=== PATIENT | male | born 1940 | race Caucasian/White ===

== ENCOUNTER 2021-01-21 10:45 | Outpatient (CLI) | payer MEDICARE, SELFPAY | END 2021-01-21 10:46 | disposition home or self-care (01) | LOC: ANHAUDIO 10:46 | PROVIDERS: PCP Internal Medicine; Visit Provider Otolaryngology | DX: H91.90 Unspecified hearing loss, unspecified ear (principal) | CPT/HCPCS: 92557; 92567 ==

== ENCOUNTER 2023-08-13 13:31 | Emergency (ER) | payer MEDICARE, SELFPAY ==
[2023-08-13 13:50] VITALS: BP 154/86; PULSE 72; RESP 18; TEMP 36.6; O2SAT 100
--- NOTE | 2023-08-13 13:57 | ED_ITS ---
HPI - Male Genitourinary General Chief complaint: Urogenital-Male Stated complaint: problems with supra pubic catheter Time Seen by Provider: 08/13/23 13:46 History of Present Illness HPI Narrative: This is an 83-year-old male, with history of suprapubic catheter placement 16 days ago [facility], who presents to the emergency department with a leaking suprapubic catheter. The patient denies any pain or fevers or irritation at the catheter insertion site. The valve at the distal end of his catheter has has been repeatedly leaking. He has no other complaints at this time. Related Data Home Medications Medication Instructions Recorded Confirmed No Home Medications 01/05/21 01/05/21 Allergies Allergy/AdvReac Type Severity Reaction Status Date / Time No Known Allergies Allergy Mild Verified 01/05/21 10:38 Review of Systems Review of Systems: All systems reviewed & are unremarkable except as noted in HPI and below (HPI) PMFSH Past Medical History Medical History Urinary retention Surgical History Surgical History History of suprapubic catheter 07/28/2023 Social History Social History Smoking status: Never smoker Alcohol intake: current Substance use: never Exam Narrative: GENERAL: Well-developed, well-nourished, and in no acute distress. HEAD: Normocephalic, atraumatic. EYES: PERRLA and EOMI. CHEST: Clear to auscultation. No respiratory distress. No wheezes rales or rhonchi HEART: Regular rate and rhythm. No murmur heard. Normal peripheral pulses. ABDOMEN: A suprapubic catheter is noted in the suprapubic region. There is a small amount of surrounding erythema without leakage of urine, bleeding or purulent drainage. The distal end of the patient's suprapubic catheter appears to be leaking. Soft, nontender, nondistended, normal active bowel sounds. EXTREMITIES: Normal range of motion. No edema. SKIN: Warm, dry, no rash. NEURO: Alert and oriented x3. No focal deficit. Moving all 4 limbs spontaneously PSYCH: Normal mood and affect. Course Course Emergency Course: 14:13 - The patient's suprapubic catheter appears to be functionally normally, aside from an end cap that slides freely and causes leakage of urine on to the patient's clothes. The patient's catheter was fitted with a leg bag. Will discharge with recommendation for Urology follow-up as previously scheduled (08/18/2023). Discussed return and emergency precautions including signs/symptoms of acute abdomen and sepsis. The patient voiced understanding and agreement with the plan. All questions answered to his satisfaction. Vital Signs Vital signs: Vital Signs Temperature 97.9 F 08/13/23 13:50 Pulse Rate 72 08/13/23 13:50 Respiratory Rate 18 08/13/23 13:50 Blood Pressure 154/86 H 08/13/23 13:50 Pulse Oximetry 100 08/13/23 13:50 Temperature 97.9 F 08/13/23 13:50 Pulse Rate 72 08/13/23 13:50 Respiratory Rate 18 08/13/23 13:50 Blood Pressure 154/86 H 08/13/23 13:50 Pulse Oximetry 100 08/13/23 13:50 MDM - Male Genitourinary MDM Narrative Medical decision making narrative: Plan: Catheter valve replacement, reassess Differential Diagnosis Differential diagnosis: Likely other (Suprapubic catheter malfunction, other) Discharge Plan Discharge Clinical Impression: Malfunction of indwelling urinary catheter Qualifiers: Encounter type: initial encounter Qualified Code(s): T83.011A - Breakdown (mechanical) of indwelling urethral catheter, initial encounter Patient Disposition: Home, Self-Care Condition: Stable Instructions: Antibiotic Form, How to Care for Your Suprapubic Catheter (DC) Additional Instructions: You were seen in the emergency department. A valve of your suprapubic catheter was replaced in the emergency department. I recommend following up with your urologist as scheduled. If you develop severe abdominal pain, abdominal pain with fevers, persistent vomiting, or if you have other emergent concerns for life, limb, or eyesight, return to the emergency department. Patient Language: Mauritanian Prescriptions: No Action No Home Medications Follow-up/Referrals: Aurelia Rojas [Other] - 08/18/23 Bruce,Gideon Ruth MD [Primary Care Provider] - Time of Disposition: 14:12
== END 2023-08-13 15:01 | disposition home or self-care (01) ==
LOC: ANHED 14:40
PROVIDERS: Emergency Provider Preventive Medicine Aerospace Medicine; PCP Internal Medicine
DX: T83.030A Leakage of cystostomy catheter, initial encounter (principal); Y84.6 Urinary catheterization as the cause of abnormal reaction of the patient, or of later complication, without mention of misadventure at the time of the procedure
CPT/HCPCS: 99282

== ENCOUNTER 2024-04-05 17:27 | Emergency (ER) | payer MEDICARE, SELFPAY ==
[2024-04-05 17:39] VITALS: BP 146/70; PULSE 60; RESP 18; TEMP 36.4; O2SAT 100
--- NOTE | 2024-04-05 18:00 | ED.GENADULT ---
HPI - General Adult General Chief complaint: Urogenital-Male Stated complaint: possible UTI Time Seen by Provider: 04/05/24 18:00 Source: patient, RN notes reviewed and old records reviewed Mode of arrival: ambulatory Limitations: no limitations History of Present Illness HPI narrative: 83-year-old presents to the [facility] with his daughter. Patient currently lives in a memory care center for dementia. Has had a change in behavior. Care center wanted him to rule out a UTI. Denies any other symptoms Related Data Home Medications ?Medication ?Instructions ?Recorded ?Confirmed ?Last Taken ?Type citalopram 10 mg tablet mg 04/05/24 Unknown History clonidine HCl 0.1 mg tablet mg 04/05/24 Unknown History finasteride 5 mg tablet mg 04/05/24 Unknown History gabapentin 100 mg capsule mg 04/05/24 Unknown History quetiapine 50 mg tablet mg 04/05/24 Unknown History Allergies Allergy/AdvReac Type Severity Reaction Status Date / Time No Known Allergies Allergy Mild Verified 04/05/24 18:03 Review of Systems Review of Systems: All systems reviewed & are unremarkable except as noted in HPI and below Constitutional: Constitutional: Reports no additional constitutional complaints ENT: Reports system reviewed and no additional complaints, except as documented Cardiovascular: Cardiovascular: Reports no additional cardiovascular complaints, Denies chest pain and Denies dyspnea Respiratory: Respiratory: Reports no additional respiratory complaints, Denies chest congestion, Denies cough and Denies dyspnea Gastrointestinal: Gastrointestinal: Reports no additional gastrointestinal complaints, Denies abdominal pain, Denies nausea and Denies vomiting Musculoskeletal: Musculoskeletal: Reports no additional musculoskeletal complaints Integumentary/Breasts: Skin/Breast: Reports system reviewed and no additional complaints, except as docu Psychiatric: Psychiatric: Reports as per HPI [facility] Past Medical History Medical History Urinary retention Surgical History Surgical History History of suprapubic catheter 07/28/2023 Social History Social History Smoking status: Never smoker Alcohol intake: current Substance use: never Comments At the time of my signature, I reviewed and agree with the nursing past medical, surgical, social, and family history. There is no relevant family history pertinent to the patient complaint. Exam Const: General: cooperative, healthy appearing, comfortable, no acute distress, well developed, alert and well nourished Nutritional Appearance: well nourished Orientation/consciousness: oriented to person and oriented to place Limitations: no limitations HENMT: Head: normal to inspection Face/Nose/Sinus: normal facial exam and face symmetric Face and sinus: normal facial exam and face symmetric Eyes: General: appearance normal, both eyes and all related structures Neck: Neck: normal visual inspection, full ROM, no lymphadenopathy and no meningeal signs Chest: Chest palpation & inspection: normal inspection of the chest Resp: Effort & Inspection: normal respiratory effort and able to speak in complete sentences Cardio: Rate: regular rate Skin: General skin exam: normal color and no rashes or lesions noted Lesions: no lesions Rashes: no rashes Wounds: no wounds Neuro: General: patient oriented x3, gait normal, tone normal, moves all extremities and no meningeal signs Cognition (Neuro): normal cognition Speech: normal speech Gait exam (Neuro): Normal gait present Extrem: General: normal to inspection, full ROM, capillary refill normal and normal gait Psych: Appearance: grossly normal and well kempt Mental Status: mental status grossly normal Speech and movement: Normal speech and movement present and Clear speech present Affect: normal affect Attitude: cooperative Course Course Level of Care: Express Care Visit Vital Signs Vital signs: Vital Signs Temperature 97.6 F 04/05/24 17:39 Pulse Rate 60 04/05/24 17:39 Respiratory Rate 18 04/05/24 17:39 Blood Pressure 146/70 H 04/05/24 17:39 Pulse Oximetry 100 04/05/24 17:39 Oxygen Delivery Room Air 04/05/24 17:39 Temperature 97.6 F 04/05/24 17:39 Pulse Rate 60 04/05/24 17:39 Respiratory Rate 18 04/05/24 17:39 Blood Pressure 146/70 H 04/05/24 17:39 Pulse Oximetry 100 04/05/24 17:39 Oxygen Delivery Room Air 04/05/24 17:39 Reviewed Medical Decision Making MDM Narrative Medical decision making narrative: Patient sitting comfortably in exam room. Nontoxic, vitals stable. Patient in no acute distress Patient presents for for change of behavior at the memory care center. Patient's daughter reports that he is unaware of his diagnosis of dementia. Patient was very pleasant when talking to No signs of infection for his urine. Discussed this with daughter. Patient appropriate for outpatient treatment with strict signs and symptoms go the emergency room which daughter verbalized understanding Discharge instructions reviewed with patient, as well as provided in writing per nursing staff. The instructions also include specific and strict return/GO TO THE ER as well as f/u information. All questions have been answered, and the patient deny any further questions with discharge and discharge plan. Some parts of this dictation were generated by voice recognition software and may contain typographical and/or grammatical inaccuracies. Differential Diagnosis Differential Diagnosis: UTI, worsening dementia Medical Records Medical records reviewed: Yes I reviewed the external patient's medical records. Vital Signs Vital Signs: Vital Signs Temperature 97.6 F 04/05/24 17:39 Pulse Rate 60 04/05/24 17:39 Respiratory Rate 18 04/05/24 17:39 Blood Pressure 146/70 H 04/05/24 17:39 Pulse Oximetry 100 04/05/24 17:39 Oxygen Delivery Room Air 04/05/24 17:39 Temperature 97.6 F 04/05/24 17:39 Pulse Rate 60 04/05/24 17:39 Respiratory Rate 18 04/05/24 17:39 Blood Pressure 146/70 H 04/05/24 17:39 Pulse Oximetry 100 04/05/24 17:39 Oxygen Delivery Room Air 04/05/24 17:39 Reviewed Lab Data Lab results reviewed: Yes I reviewed the patient's lab results. Labs: Lab Results 04/05/24 Range/Units 18:08 POC Urine Color Yellow POC Urine Clarity Clear POC Urine pH 6.5 POC Ur Specif [place] 1.020 POC Urine Protein Negative (Negative) POC Ur Glucose (UA) Negative (Negative) POC Urine Ketones Negative (Negative) POC Urine Blood Negative (Negative) POC Urine Nitrite Negative (Negative) POC Urine Bilirubin Negative (Negative) POC Urine Urobilinogen 0.2 POC U Leukocyte Esteras Negative (Negative) Reviewed Critical Care Time Critical Care Time Critical Care Time: No Discharge Plan Discharge Clinical Impression: Adult wellness visit, History of dementia, Behavior concern in adult Patient Disposition: Home, Self-Care Condition: Stable Instructions: Dementia (ED) Additional Instructions: Urine urine dip did not show signs of a urinary tract infection Please follow-up with primary care provider as soon as possible For worsening symptoms please go directly to the nearest emergency room Patient Language: Yoruba Prescriptions: No Action clonidine HCl 0.1 mg tablet citalopram 10 mg tablet gabapentin 100 mg capsule finasteride 5 mg tablet quetiapine 50 mg tablet Follow-up/Referrals: PHYSICIAN,[employer] WORKER [Primary Care Provider] - Time of Disposition: 18:11
[2024-04-05 18:10] LABS: EDUAAPPEAR Clear; EDUABILI Negative (Negative); EDUABLOOD Negative (Negative); EDUACOLOR1 Yellow; EDUAGLUCOSE Negative (Negative); EDUAKETONE Negative (Negative); EDUALEUKO Negative (Negative); EDUANITRATE Negative (Negative); EDUAPH 6.5; EDUAPROTEIN Negative (Negative); EDUAUROBILI 0.2
== END 2024-04-05 18:14 | disposition home or self-care (01) ==
PROVIDERS: Emergency Provider Nurse Practitioner
DX: Z03.89 Encounter for observation for other suspected diseases and conditions ruled out (principal); F03.90 Unspecified dementia, unspecified severity, without behavioral disturbance, psychotic disturbance, mood disturbance, and anxiety; F91.9 Conduct disorder, unspecified
CPT/HCPCS: 81003; 99212; G0463

== ENCOUNTER 2024-09-09 01:13 | Emergency (ER) | payer MEDICARE, SELFPAY ==
--- NOTE | 2024-09-09 01:14 | ECG_ITS ---
Test Date: 2024-09-09 01:22:30 Measurements Intervals [place] Rate: 64 P: 53 MA: 209 QRS: -13 QRSD: 102 T: 36 QT: 418 QTc: 433 Interpretive Statements SINUS RHYTHM NORMAL ECG No previous ECG available for comparison Electronically Signed On 09-09-2024 08:10:16 CDT by Rajat Butterfield M.D.
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
--- OUTSIDE RECORDS SUMMARY | 2024-09-09 01:15 | XMS_ITS | Referral Summary ---
Author Organization [place] [id number] [facility] Address [address] [place] [address] Care Team Providers Care Powerhouse Helper Name Role Phone Chaim Ojeda MD Primary Care Provider Encounters Date Type Department Care Team Description 08/28/2024 [facility] Critical access hospital [address] [place] [address] Chaim Ojeda MD dental procedure 08/20/2024 9:45 AM CDT Therapy [facility] [address] [place] [phone] Elisabeth Melendez DPT Chronic pain of left knee (Primary Dx) 08/02/2024 Plan of Care Documentation [facility] [address] [place] [phone] 07/26/2024 3:45 PM CDT Therapy [facility] [address] [place] [phone] Elisabeth Melendez DPT Chronic pain of left knee (Primary Dx) 07/05/2024 2:00 PM CDT Office Visit [facility] [address] [place] [address] 11th [place] [address] [place] [address] Pooja Soto PA Bilateral impacted cerumen 06/20/2024 1:30 PM CARDIOLOGY TEACHER Office Visit [facility] Critical access [facility] [place] [address] Chaim Ojeda MD Medicare annual wellness visit, subsequent (Primary Dx); Chronic pain of left knee; Bilateral impacted cerumen; Alzheimer's disease with late onset (HCC) from Last 3 Months Allergies Active Allergy Reactions Criticality Noted Date Comments Venom-Honey Bee Swelling Medium 11/20/2019 Cholecalciferol (Vitamin D3) Muscle pain Medium 2020 Grass Pollen Unknown Pollen Extracts Unknown Tree And Shrub Pollen Unknown Wasp Venom Swelling Medium 11/20/2019 Medications ergocalciferol (VITAMIN D) 50,000 unit capsuleIndicati ons:Vitamin D deficiency Take 1 capsule (50,000 Units total) by mouth once a week TAKE 1 CAPSULE ONCE A WEEK FOR 12 WEEKS, THEN FOLLOW UP WITH YOUR PCP. 12 capsule 03/26/2022 Active tamsulosin (FLOMAX) 0.4 mg extended release capsule 1 capsule (0.4 mg total) Active finasteride (PROSCAR) 5 mg tablet Take 1 tablet (5 mg total) by mouth daily Active QUEtiapine (SEROquel) 50 mg tablet Take 1 tablet (50 mg total) by mouth nightly at bedtime. 30 tablet 6 11/28/2023 Active citalopram (CeleXA) 10 mg tablet Take 1 tablet (10 mg total) by mouth daily 30 tablet 2 11/29/2023 Active gabapentin (NEURONTIN) 100 mg capsule Take 1 capsule (100 mg total) by mouth 3 (three) times a day 90 capsule 12/08/2023 Active amoxicillin (AMOXIL) 500 mg tablet/capsule Take 4 tablet/capsu le (2,000 mg total) by mouth once for 1 dose Take 1 hour prior to procedure. 4 tablet/capsul e 08/28/2024 08/29/19 25 Active Problems Problem Noted Date Diagnosed Date Bilateral impacted cerumen 07/05/2024 Chronic pain of left knee 06/20/2024 Assessment & Plan (06/20/2024 7:37 PM CARDIOLOGY TEACHER): Refer to PT. Alzheimer's disease with late onset 02/07/2024 Assessment & Plan (06/20/2024 7:37 PM CARDIOLOGY TEACHER): Per neurology. Assessment & Plan (02/07/2024 3:58 PM CDT): Continue citalopram/Celexa 10 mg daily and quetiapine/Seroquel 50 mg nightly. We discussed that while gabapentin is a medication we normally do not recommend as far as memory, it has been improving his quality of life greatly and helping his behavior. We discussed starting an acetylcholinesterase inhibitor such as donepezil/Aricept but family would like to think about it for now. His blood pressure was elevated at today's visit. He denied any signs of hypertensive crisis. Follow-up in 6 months or sooner if need be. Benign prostatic hyperplasia 05/12/2023 Assessment & Plan (05/12/2023 1:00 PM CARDIOLOGY TEACHER): Sees urology. Continue finasteride and Flomax. 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 Has MRI planned at [facility]. He is hoping to be cleared to drive again. Primary osteoarthritis of left hip 03/31/2022 Left groin pain 03/09/2022 Assessment & Plan (03/09/2022 11:28 AM CARDIOLOGY TEACHER): Likely L hip OA. X rays today. Referral to ortho pending results. Arthritis of left hip 03/09/2022 Chronic sinusitis 10/12/2021 Assessment & Plan (10/12/2021 11:10 AM CDT): Seeing ENT. Other hyperlipidemia 04/13/2021 Assessment & Plan (03/09/2022 11:27 AM CARDIOLOGY TEACHER): Off statin due to myalgias. Check lipids at [facility] in 1 month and consider starting alternative statin at low dose. Assessment & Plan (10/12/2021 11:09 AM CDT): LDL remains elevated. Start atorvastatin 20 mg daily. Hypertension, essential 04/13/2021 Assessment & Plan (10/12/2021 12:09 PM CDT): BP at goal based on home log without need for medication. Assessment & Plan (04/13/2021 1:19 PM CARDIOLOGY TEACHER): BP elevated today. Check BP's at home using automated cuff and keep log. Send me log in 2 weeks. Goal < 130/80. Vitamin D deficiency 04/13/2021 Medicare annual wellness visit, subsequent 04/13 Assessment & Plan (06/20/2024 7:38 PM CARDIOLOGY TEACHER): Exercise 30 minutes per day 5x weekly. Eat heart healthy (Mediterranean) diet of fruits, vegetables, and whole grains; avoid saturated fats and excess sweets. He declines vaccinations. No longer performing cancer screening due to age. Assessment & Plan (05/12/2023 1:01 PM CARDIOLOGY TEACHER): Recovering very well after his accident. No longer performing cancer screening due to age. I recommended COVID, flu, and RSV vaccines. Assessment & Plan (04/13/2021 1:19 PM CARDIOLOGY TEACHER): Continue healthy lifestyle. Strongly recommended COVID booster and flu shot. He will look into his records for the date of his last colonoscopy. Not doing PSA testing due to age. 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 Monthly or less 03/31/2022 Q2: How many drinks containi ng alcohol do you have on a typical day when you are drinking? 1 or 2 03/31/2022 Q3: How often do you have si x or more drinks on one occasion? Never 03/31/2022 PHQ-2 Answer Date Recorded PHQ-2 Total Score (If total score is 3 or more points, staff should administer the PHQ-9) 0 06/20/2024 Sex and Gender Information Value Date Recorded Sex Assigned at Not on file Legal Sex Male 8:01 AM CDT Gender Identity Not on file Sexual Orientation Not on file Occupation Industry Job Start Date Job End Date retired Not on file Not on file Not on file Last Filed Vital Signs Vital Sign Reading Time Taken Comments Blood Pressure 138/80 06/20/2024 1:19 PM CARDIOLOGY TEACHER Pulse 82 06/20/2024 1:19 PM CARDIOLOGY TEACHER Temperature 36.8 C (98.2 F) 02/07/2024 2:55 PM CDT Respiratory Rate 18 04/01/2022 8:10 AM CARDIOLOGY TEACHER Oxygen Saturation 98% 02/07/2024 2:55 PM CDT Inhaled Oxygen Concentration - - Weight 82.9 kg (182 lb 12.8 oz) 07/05/2024 1:54 PM CDT Height 180.3 cm (5' 11 ) 06/20/2024 1:19 PM CARDIOLOGY TEACHER Body Mass Index 25.5 06/20/2024 1:19 PM CARDIOLOGY TEACHER Plan of Treatment Not on file Medical Devices Implanted Type Area Health Informatics Instructor Device Identifier Shelf Expiration Date Model / Serial / Lot [employer] [id number] 36mm Modular Hip +6mm Head Femoral Biolox Delta - S0 - [id number] Implanted:Qty: 1 on 11/23/2019 by Anton Orourke MD at [facility] Other - see comments Right: Hip [employer] [id number] 05/15/[id number] / 0 / [id number] [employer] [id number] Taperloc Xr Series 150mm Press Fit Full Profile Hip 123d 15 Stem - S0 - [id number] Implanted:Qty: 1 on 11/23/2019 by Anton Orourke MD at [facility] Other - see comments Right: Hip [employer] 03/11/2026 [id number] / 0 / [id number] [employer] [id number] G7 58mm Limit 4 Hole Hip G Hemisphere Offset Shell Acetabular - [id number] Implanted:Qty: 1 on 11/23/2019 by Anton Orourke MD at [facility] Right: Hip [employer] [id number] 05/15/2029 [id number] / / [id number] [employer] [id number] G7 36mm Color Coded Hip +5mm G Neutral Liner Acetabular Arcomxl - [id number] Implanted:Qty: 1 on 11/23/2019 by Anton Orourke MD at [facility] Right: Hip [employer] [id number] 02/14/2023 [id number] / / [id number] [employer] [place] 58mm 12 Dome Screw Multihole Ii Hip Cup Acetabular Latex Free [id number] - [id number] Implanted:Qty: 1 on 03/31/2022 by Sebastián Bustamante MD at [facility] Left: Hip [employer] [id number] / / [employer] [place] 6.5mm 30mm Acetabular Cancellous Screw Bone Revision 121 - [id number] Implanted:Qty: 1 on 03/31/2022 by Sebastián Bustamante MD at [facility] Left: Hip [employer] [id number] / / [employer] [place] 6.5mm 25mm Acetabular Cancellous Screw Bone Sterile 121500 - [id number] Implanted:Qty: 1 on 03/31/2022 by Sebastián Bustamante MD at [facility] Left: Hip [employer] [id number] / / [employer] [place] 58mm 40mm Hip Neutral Liner Acetabular Altrx Sterile [id number] - [id number] Implanted:Qty: 1 on 03/31/2022 by Sebastián Bustamante MD at [facility] Left: Hip [employer] [id number] / / [employer] Actis L111 Mm Collar Hip 8 High Offset Stem Femoral [id number] - [id number] Implanted:Qty: 1 on 03/31/2022 by Sebastián Bustamante MD at [facility] Left: Hip [employer] [id number] / / [employer] Articul/Tito 40mm Sleeve Total Stabilize Hip +1.5mm 04/07 Taper [id number] - [id number] Implanted:Qty: 1 on 03/31/2022 by Sebastián Bustamante MD at [facility] Left: Hip [employer] [id number] / / Insurance [employer] MEDICARE PPO COMMERCIAL GENERIC [employer] MEDICARE PPO [employer] CHOICE MEDICARE PPO [facility] Advance Directives For more information, please contact: [phone] Documents on File Type Date Recorded Patient Menswear Salesperson Expl anation ADVANCE DIRECTIVE 03/29/2022 2:44 PM POWER OF TRAINMAN-MEDICAL ADVANCE DIRECTIVE 11/23/2019 9:42 AM Power of Fly Maker-Medical * Full Code (Latest Code Status on File) Date Activated Date Inactivated Comments 03/31/2022 11:09 AM 04/01/2022 3:56 PM * Full Code Date Activated Date Inactivated Comments 11/23/2019 4:05 PM 11/24/2019 5:11 PM Care Teams Powerhouse Helper Relationship Specialty Start Date End Date Chaim Ojeda MD PCP - General Endocrinology Diabetes & Metabolism 11/18/20
--- OUTSIDE RECORDS SUMMARY | 2024-09-09 01:15 | XMS_ITS | Encounter Summary ---
Author Organization [facility] Healthcare Address [address] [place] [address] Care Team Providers Care Clerical Warehouseman Name Role Phone Gideon Barrera MD Primary Care Provider [phone] Chaim Ojeda MD Primary Care Provider Reason for Referral * Diagnostic Imaging (Routine) - Closed Specialty Diagnoses / Procedures Referred By Contac t Referred To Contact Radiology Diagnoses Periumbilical abdominal pain Pelvic pain in male Nausea and vomiting, intractability of vomiting not specified, unspecified vomiting type Loss of weight Temperature elevation Procedures CT Abdomen Pelvis W Contrast Gideon Barrera MD Phone: tel: fax: [address] [address] Referral ID Status Reason Start Date Expiration Date Visits Re quested Visits Authorized [id number] Closed 12/02/2017 06/13/2019 1 1 Encounter Details Date Type Department Care Team (Latest Contact Info) Description 12/02/2017 Community Orders [facility] EpicCare Link Gideon Barrera MD [facility] [address] [address] Periumbilical abdominal pain (Primary Dx); Pelvic pain in male; Nausea and vomiting, intractability of vomiting not specified, unspecified vomiting type; Loss of weight; Temperature elevation Social History Tobacco Use Types Packs/Day Years Used Date Smoking Tobacco: Never Sex and Gender Information Value Date Recorded Sex Assigned at Not on file Legal Sex Male 8:01 AM CDT Gender Identity Not on file Sexual Orientation Not on file documented as of this encounter Plan of Treatment Not on file documented as of this encounter Results * CT Abdomen Pelvis W Contrast (12/16/2017 11:57 AM CDT) Anatomical Region Laterality Modality Body N/A Computed Tomogra phy 12/16/2017 12:1 1 PM CDT Impressions 12/16/2017 12:11 PM CDT 1. Distended urinary bladder with thick wall and enlarged prostate compatible with chronic outlet obstruction. 2. Otherwise, CT of the abdomen and pelvis is within normal limits. Electronically signed by: Sai Ramirez 12/16/2017 12:11 PM CDT EXAMINATION: CT of the abdomen and pelvis with intravenous contrast. TECHNIQUE: Computed axial tomographic images of the abdomen and pelvis were obtained with intravenous contrast according to standard protocol. There were no immediate complications after the intravenous administration of 100 cc optiray 350. HISTORY: Periumbilical abdominal pain FINDINGS: No comparison available. Limited views of lower thorax are normal. Liver is normal. No focal lesions. Gallbladder is normal. No biliary ductal dilation. Portal vein is patent. Pancreas, spleen and adrenal glands are normal. Kidneys are normal. No hydronephrosis. Bladder is distended and thick-walled with an enlarged prostate, compatible with chronic outlet obstruction. Small and large bowel are normal in caliber without obstruction or inflammation. Appendix is normal. There is no abdominal or pelvic lymphadenopathy. Aorta is nonaneurysmal. There are no suspicious osseous lesions. There is mild age-indeterminate wedging of T12. Procedure Note Souleymane Hermosillo MD PhD - 12/16/2017 EXAMINATION: CT of the abdomen and pelvis with intravenous contrast. TECHNIQUE: Computed axial tomographic images of the abdomen and pelvis were obtained with intravenous contrast according to standard protocol. There were no immediate complications after the intravenous administration of 100 cc optiray 350. HISTORY: Periumbilical abdominal pain FINDINGS: No comparison available. Limited views of lower thorax are normal. Liver is normal. No focal lesions. Gallbladder is normal. No biliary ductal dilation. Portal vein is patent. Pancreas, spleen and adrenal glands are normal. Kidneys are normal. No hydronephrosis. Bladder is distended and thick-walled with an enlarged prostate, compatible with chronic outlet obstruction. Small and large bowel are normal in caliber without obstruction or inflammation. Appendix is normal. There is no abdominal or pelvic lymphadenopathy. Aorta is nonaneurysmal. There are no suspicious osseous lesions. There is mild age-indeterminate wedging of T12. IMPRESSION: 1. Distended urinary bladder with thick wall and enlarged prostate compatible with chronic outlet obstruction. 2. Otherwise, CT of the abdomen and pelvis is within normal limits. Electronically signed by: Souleymane Hermosillo M.D. Gideon Barrera MD IMG CT PROCEDURES Final Result documented in this encounter Visit Diagnoses Diagnosis Periumbilical abdominal pain- Primary Abdominal pain, periumbilic Pelvic pain in male Abdominal pain, other specified site Nausea and vomiting, intractability of vomiting not specified, unspecified vomiting type Loss of weight Temperature elevation Fever, unspecified Periumbilical abdominal pain Abdominal pain, periumbilic Pelvic pain in male Abdominal pain, other specified site Nausea and vomiting, intractability of vomiting not specified, unspecified vomiting type Loss of weight Temperature elevation Fever, unspecified documented in this encounter Care Teams Clerical Warehouseman Relationship Specialty Start Date End Date Gideon Barrera MD [address] [address] PCP - General 11/24/17 11/17/20 Chaim Ojeda MD [address] [address] PCP - General Endocrinology Diabetes & Metabolism 11/18/20 documented as of this encounter
--- OUTSIDE RECORDS SUMMARY | 2024-09-09 01:15 | XMS_ITS | Encounter Summary ---
Author Organization [facility] Healthcare Address [address] [place] [address] Care Team Providers Care Stile Ripsaw Operator Name Role Phone Gideon Barrera MD Primary Care Provider [phone] Chaim Ojeda MD Primary Care Provider Encounter Details Date Type Department Care Team (Late st Contact Info) Description 11/25/2017 Community Orders [facility] EpicCare Link Gideon Barrera MD [address] [email or web address] [address] [id number] Inguinal hernia of right side with obstruction (Primary Dx) Social History Tobacco Use Types Packs/Day Years Used Date Smoking Tobacco: Never Sex and Gender Information Value Date Recorded Sex Assigned at Not on file Legal Sex Male 8:01 AM CDT Gender Identity Not on file Sexual Orientation Not on file documented as of this encounter Plan of Treatment Not on file documented as of this encounter Visit Diagnoses Diagnosis Inguinal hernia of right side with obstruction- Primary documented in this encounter Care Teams Stile Ripsaw Operator Relationship Specialty Start Date End Date Gideon Barrera MD [address] [email or web address] [address] [phone] PCP - General 11/24/17 11/17/20 Chaim Ojeda MD [address] [email or web address] [facility] [address], [place] [id number] PCP - General Endocrinology Diabetes & Metabolism 11/18/20 documented as of this encounter
--- OUTSIDE RECORDS SUMMARY | 2024-09-09 01:15 | XMS_ITS | Clinical Summary ---
Author Organization [address] Address [address] [place] [address] Care Team Providers Care Digital X Ray Service Engineer Name Role Phone Chaim Ojeda MD Primary Care Provider Allergies Active Allergy Reactions Criticality Noted Date [...] 06/20/2024 Assessment & Plan (06/20/2024 7:37 PM INJECTION MOLD TOOLING TECHNICIAN): Refer to PT. Alzheimer's disease with late onset 02/07/2024 Assessment & Plan (06/20/2024 7:37 PM INJECTION MOLD TOOLING TECHNICIAN): Per neurology. Assessment & Plan (02/07/2024 3:58 [...] 05/12/2023 Assessment & Plan (05/12/2023 1:00 PM INJECTION MOLD TOOLING TECHNICIAN): Sees urology. Continue finasteride and Flomax. 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 Has MRI planned at [facility]. He is hoping to be cleared to drive again. Primary osteoarthritis of left hip 03/31/2022 Left groin pain 03/09/2022 Assessment & Plan (03/09/2022 11:28 AM INJECTION MOLD TOOLING TECHNICIAN): Likely L hip OA. X rays today. Referral to ortho pending results. Arthritis of left hip 03/09/2022 Chronic sinusitis 10/12/2021 Assessment & Plan (10/12/2021 11:10 AM CDT): Seeing ENT. Other hyperlipidemia 04/13/2021 Assessment & Plan (03/09/2022 11:27 AM INJECTION MOLD TOOLING TECHNICIAN): Off statin due to myalgias. Check lipids at [facility] in 1 month and consider starting alternative statin at low dose. Assessment & Plan (10/12/2021 11:09 AM CDT): LDL remains elevated. Start atorvastatin 20 mg daily. Hypertension, essential 04/13/2021 Assessment & Plan (10/12/2021 12:09 PM CDT): BP at goal based on home log without need for medication. Assessment & Plan (04/13/2021 1:19 PM INJECTION MOLD TOOLING TECHNICIAN): BP elevated today. Check BP's at home using automated cuff and keep log. Send me log in 2 weeks. Goal < 130/80. Vitamin D deficiency 04/13/2021 Medicare annual wellness visit, subsequent 04/13 Assessment & Plan (06/20/2024 7:38 PM INJECTION MOLD TOOLING TECHNICIAN): Exercise 30 minutes per day 5x weekly. Eat heart healthy (Mediterranean) diet of fruits, vegetables, and whole grains; avoid saturated fats and excess sweets. He declines vaccinations. No longer performing cancer screening due to age. Assessment & Plan (05/12/2023 1:01 PM INJECTION MOLD TOOLING TECHNICIAN): Recovering very well after his accident. No longer performing cancer screening due to age. I recommended COVID, flu, and RSV vaccines. Assessment & Plan (04/13/2021 1:19 PM INJECTION MOLD TOOLING TECHNICIAN): Continue healthy lifestyle. Strongly recommended COVID booster and flu shot. He will look into his records for the date of his last colonoscopy. Not doing PSA testing due to age. Primary osteoarthritis of right hip 11/06/2019 Overview (11/06/2019): Added automatically from request for surgery [id number] Impotence of organic origin 12/25/2014 Elevated prostate specific antigen (PSA) 015 Encounters Date Type Department Care Team Description 08/28/2024 [facility] [address] [place] [address] Chaim Ojeda MD dental procedure 08/20/2024 9:45 AM CDT Therapy [facility] [address] [place] [phone] Elisabeth Melendez DPJohan Chronic pain of left knee (Primary Dx) 08/02/2024 Plan of Care Documentation [facility] [address] [place] [phone] 07/26/2024 3:45 PM CDT Therapy [facility] [address] [place] [phone] Elisabeth Melnedez DPT Chronic pain of left knee (Primary Dx) 07/05/2024 2:00 PM CDT Office Visit [facility] [address]th [place] [address] [place] [address] Pooja Soto PA Bilateral impacted cerumen 06/20/2024 1:30 PM INJECTION MOLD TOOLING TECHNICIAN Office Visit [facility] [address] [place] [address] Chaim Ojeda MD Medicare annual wellness visit, subsequent (Primary Dx); Chronic pain of left knee; Bilateral impacted cerumen; Alzheimer's disease with late onset (HCC) from Last 3 Months Immunizations Immunization Administration Dates Next Due Pneumococcal Polysaccharide PPV23 12/06/2007,02/2003 Td, adsorbed 10/03/2002 ZOSTER LIVE 07/04/2006 Surgical History Surgery Date Site/Laterality Comments FLUORO GUIDED INJECTION HIP RIGHT 05/09/2019 Right COLONOSCOPY HIP ARTHROPLASTY Right Medical History Medical History Date Comments Allergic rhinitis Family History Medical History Relation Name Comments Cancer Father Lung cancer Father Family history of lung cancer - (Added by TW Conv) Hypertension Mother Memory loss Mother Heart disease Sister Anesthesia problems Neg Hx Relation Name Status Comments Father Mother Sister Social History Tobacco Use Types Packs/Day Years [...] file Not on file Not on file Obstetrics History Last Filed Vital Signs Vital Sign Reading Time Taken Comments Blood Pressure 138/80 06/20/2024 1:19 PM INJECTION MOLD TOOLING TECHNICIAN Pulse 82 06/20/2024 1:19 PM INJECTION MOLD TOOLING TECHNICIAN Temperature 36.8 C (98.2 F) 02/07/2024 2:55 PM CDT Respiratory Rate 18 04/01/2022 8:10 AM INJECTION MOLD TOOLING TECHNICIAN Oxygen Saturation 98% 02/07/2024 2:55 PM CDT Inhaled Oxygen Concentration - - Weight 82.9 kg (182 lb 12.8 oz) 07/05/2024 1:54 PM CDT Height 180.3 cm (5' 11 ) 06/20/2024 1:19 PM INJECTION MOLD TOOLING TECHNICIAN Body Mass Index 25.5 06/20/2024 1:19 PM INJECTION MOLD TOOLING TECHNICIAN Plan of Treatment Health Maintenance Due Date Last Done Comments Hepatitis B Screening 06/30/1958 Zoster Vaccine (2 of 3) 08/29/2006 07/04/2006 Pneumococcal vaccine 65+ (2 of 2 - PCV) 12/05/2008 12/06/2007, 10/03/2002 Covid-19 Vaccine (3 - 2023-2 5 season) 2023 06/21/2020, 05/30/2020 Influenza Vaccine (Season Ended) 2024 Depression Screening 06/20/2025 06/20/2024, 05/12/2023, 04/13/2021 Fall Risk Assessment 06/20/2025 06/20/2024, 05/12/2023, 04/01/2022, Additional history exists Well Visit 65+ 06/20/2025 06/20/2024, 04/25, 04/13/2021, Additional history exists DTaP/Tdap/Td Vaccine (2 - Td or Tdap) 02/16/2033 02/16/2023, 10/03/2002 Medical Devices Implanted Type Area Gang Hemstitching Machine Operator Device Identifier Shelf Expiration Date Model / Serial / Lot [employer] [id number] 36mm Modular Hip +6mm Head Femoral Biolox Delta - S0 - [id number] Implanted:Qty: 1 on 11/23/2019 by Anton Orourke MD at [facility] Other - see comments Right: Hip [employer] [id number] 05/15/2028 [id number] / 0 / [id number] [employer] [id number] Taperloc Xr Series 150mm Press Fit Full Profile Hip 123d 15 Stem - S0 - [id number] Implanted:Qty: 1 on 11/23/2019 by Anton Orourke MD at [facility] Other - see comments Right: Hip [employer] 03/11/2026 [id number] / 0 / [id number] [employer] [id number] G7 58mm Limit 4 Hole Hip G Hemisphere Offset Shell Acetabular - [id number] Implanted:Qty: 1 on 11/23/2019 by Anton Orourke MD at [facility] Right: Hip [employer] [id number] 05/15/2029 [id number] / / [id number] [employer] [id number] G7 36mm Color Coded Hip +5mm G Neutral Liner Acetabular Arcomxl - [id number] Implanted:Qty: 1 on 11/23/2019 by Anton Orourke MD at [facility] Right: Hip [employer] [id number] 02/14/2023 [id number] / / [id number] [employer] Nogal 58mm 12 Dome Screw Multihole Ii Hip Cup Acetabular Latex Free [id number] - [id number] Implanted:Qty: 1 on 03/31/2022 by Sebastián Bustamante MD at [facility] Left: Hip [employer] [id number] / / [employer] Nogal 6.5mm 30mm Acetabular Cancellous Screw Bone Revision - [id number] Implanted:Qty: 1 on 03/31/2022 by Sebastián Bustamante MD at [facility] Left: Hip [employer] [id number] / / [employer] Nogal 6.5mm 25mm Acetabular Cancellous Screw Bone Sterile - [id number] Implanted:Qty: 1 on 03/31/2022 by Sebastián Bustamante MD at [facility] Left: Hip [employer] [id number] / / [employer] Nogal 58mm 40mm Hip Neutral Liner Acetabular Altrx Sterile [id number] - [id number] Implanted:Qty: 1 on 03/31/2022 by Sebastián Bustamante MD at [facility] Left: Hip [employer] [id number] / / [employer] Actis L111 Mm Collar Hip 8 High Offset Stem Femoral [id number] - [id number] Implanted:Qty: 1 on 03/31/2022 by Sebastián Bustamante MD at [facility] Left: Hip [employer] [id number] / / [employer] Articul/Tito 40mm Sleeve Total Stabilize Hip +1.5mm 04/07 Taper [id number] - [id number] Implanted:Qty: 1 on 03/31/2022 by Sebastián Bustamante MD at [facility] Left: Hip [employer] [id number] / / Insurance [employer] CHOICE MEDICARE PPO COMMERCIAL GENERIC HU[employer] CHOICE MEDICARE PPO [employer] CHOICE MEDICARE PPO [employer] CHOICE MEDICARE PPO Advance Directives For more information, please contact: [phone] Documents on File Type Date Recorded Patient Classifications Officer Cc/Cm Expl anation ADVANCE DIRECTIVE 03/29/2022 2:44 PM POWER OF CHORE TENDER-MEDICAL ADVANCE DIRECTIVE 11/23/2019 9:42 AM Power of Fire Protection Fabricator-Medical * Full Code (Latest Code Status on File) Date Activated Date Inactivated Comments 03/31/2022 11:09 AM 04/01/2022 3:56 PM * Full Code Date Activated Date Inactivated Comments 11/23/2019 4:05 PM 11/24/2019 5:11 PM Care Teams Digital X Ray Service Engineer Relationship Specialty Start Date End Date Chaim Ojeda MD PCP - General Endocrinology Diabetes & Metabolism 11/18/20
--- OUTSIDE RECORDS SUMMARY | 2024-09-09 01:15 | XMS_ITS | Continuity of Care Document ---
Author Organization [facility] Address [address] [place] [address] Phone Care Team Providers Care Boat Joiner Helper Name Role Phone Ike Fiore MD Unavailable Unavailable Allergies, Adverse Reactions, Alerts Substance Reaction Status Criticality No Known Drug Allergies Other Active No I nformation Medications Medication Instructions Dosage Effective Dates (start - stop) Status Comments FLONASE 0.05% NASAL SPRAY 2 QD - Active FLONASE 0.05% NASAL SPRAY 2 QD - No Longer Active ZYRTEC 10MG TABS 1 QD - No Longer Active FLONASE 50MCG APPLICS 2 QD - No Longer Active Advance Directives Directive Yes / No Effective Date File Name No Information Encounters Encounter Description Practice Location Reason(s) For Visit Diagnoses Date Provider Providers Copied on Encounter [employer] [facility], [address], [place], [place], [id number], tel:[phone] [facility] No Information 1 Adebayo Ike. [address] [place] [address], [id number] , . tel: [phone] [facility], [address], [place], [id number], tel:[phone] [facility] CHRONIC RHINITISALLERGIC RHINITIS NEC 4 Adebayo Ike. [address] [place] [address], [id number] , . tel: [phone] Family History Family Member Type Diagnosis Age At Onset No Information Payers Payer name Insurance type Covered green party ID Authoriza tion(s) No Information Social History Type Description Quantity Date Captured Comments Sex Male Smoking Status No Information Chief Complaint And Reason For Visit No Information Reason For Referral Reason For Referral No Information History Of Present Illness Encounter Date Complaint History Of Prese nt Illness No Information Functional Status Date Functional Assessmen t No Information Medications Administered Medication Instructions Dosage Effective Dates (start - stop) Status Comments FLONASE 0.05% NASAL SPRAY 2 QD - No Longer Active Instructions Date Instruction Additional Infor mation No Information Assessments Type Assessment Date No Information Patient Care Teams Name Effective Dates (start - stop) Status Members No Information
[2024-09-09 01:21] VITALS: PULSE 65; RESP 13; TEMP 36.5; O2SAT 98
[2024-09-09] MEDS: ONDANSETRON INJ 4 MG/2 ML VIAL IV PUSH (01:31)
[2024-09-09 01:33] LABS: Basophils Absolute Auto 0.1 K/mm3 (0.0-0.1); Basophils Percent Auto 0.5 % (0.2-1.2); Eosinophils Absolute Auto 0.2 K/mm3 (0-0.3); Eosinophils Percent Auto 1.9 % (0-4.4); Hemoglobin 15.7 g/dL (14.0-18.0); Immature Granulocyte Absolute 0.04 K/mm3 (0.00-0.031); Immature Granulocyte Percent A 0.4 % (0-0.5); Lymphocytes Absolute Auto 1.12 K/mm3 (0.9-3.2); Lymphocytes Percent Auto 10.9 % (18.3-44.2); Mean Corpuscular HGB Conc 33.4 g/dl (32-36); Mean Corpuscular Hemoglobin 31.9 pg (26-34); Mean Corpuscular Volume 95.5 fl (80-100); Mean Platelet Volume 9.9 fl (7.4-10.4); Monocytes Absolute Auto 0.5 K/mm3 (0.1-0.6); Monocytes Percent Auto 4.4 % (2.6-8.5); Neutrophils Absolute Auto 8.4 K/mm3 (1.3-6.7); Neutrophils Percent Auto 81.9 % (45.5-73.1); Platelet Count Result 206 k/mm3 (150-375); Red Blood Count 4.92 M/mm3 (4.6-6.20); Red Cell Distribution Width 12.7 % (11.5-14.5); White Blood Count 10.3 K/mm3 (4.5-10.0)
[2024-09-09 01:47] LABS: Alanine Aminotransferase 29 U/L (6-50); Albumin Level 4.1 g/dL (3.5-5.1); Alkaline Phosphatase 78 U/L (38-126); Anion Gap 8 mmol/L (4-12); Aspartate Amino Transferase 38 U/L (17-59); Bilirubin,Total 0.4 mg/dL (0.2-1.3); Blood Urea Nitrogen 21 mg/dL (9-20); Carbon Dioxide 26 mmol/L (22-30); Chloride 105 mmol/L (98-107); Estimated CRCL calculation 50 ml/min; Estimated Glomerular Filt Rate > 60; Glucose 135 mg/dL (65-110); Lipase 55 U/L (23-300); Sodium 139 mmol/L (137-145)
[2024-09-09] MEDS: FAMOTIDINE 20 MG/2 ML VIAL IV PUSH (02:31)
[2024-09-09] MEDS: ACETAMINOPHEN 500 MG TABLET 1000 MG PO (02:31)
[2024-09-09] MEDS: MECLIZINE HCL 25 MG TABLET PO (02:33)
[2024-09-09] MEDS: LACTATED RINGERS 1,000 ML 999 ML IV CONT (02:34)
--- OUTSIDE RECORDS SUMMARY | 2024-09-09 02:52 | XMS_ITS | Referral Summary ---
Author Organization [place] [id number] [facility] Address [address] [place] [address] Care Team Providers Care Benzol Operator Name Role Phone Chaim Ojeda MD Primary Care Provider Encounters Date Type Department Care Team Description 08/28/2024 [facility] [place] [address] Chaim Ojeda MD dental procedure 08/20/2024 9:45 AM CDT Therapy [facility] [address] [place] [phone] Elisabeth Melendez DPT Chronic pain of left knee (Primary Dx) 08/02/2024 Plan of Care Documentation [facility] [address] [place] [phone] 07/26/2024 3:45 PM CDT Therapy [facility] [address] [place] [phone] Elisabeth Melendez DPT Chronic pain of left knee (Primary Dx) 07/05/2024 2:00 PM CDT Office Visit [facility] [address] [place] [address] 11th [place] [address] [place] [address] Pooja oSto PA Bilateral impacted cerumen 06/20/2024 1:30 PM SPONGE PACKER Office Visit [facility] [place] [address] Chaim Ojeda MD Medicare annual wellness visit, [...] 06/20/2024 Assessment & Plan (06/20/2024 7:37 PM SPONGE PACKER): Refer to PT. Alzheimer's disease with late onset 02/07/2024 Assessment & Plan (06/20/2024 7:37 PM SPONGE PACKER): Per neurology. Assessment & Plan (02/07/2024 3:58 [...] 05/12/2023 Assessment & Plan (05/12/2023 1:00 PM SPONGE PACKER): Sees urology. Continue finasteride and Flomax. 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 Has MRI planned at [facility]. He is hoping to be cleared to drive again. Primary osteoarthritis of left hip 03/31/2022 Left groin pain 03/09/2022 Assessment & Plan (03/09/2022 11:28 AM SPONGE PACKER): Likely L hip OA. X rays today. Referral to ortho pending results. Arthritis of left hip 03/09/2022 Chronic sinusitis 10/12/2021 Assessment & Plan (10/12/2021 11:10 AM CDT): Seeing ENT. Other hyperlipidemia 04/13/2021 Assessment & Plan (03/09/2022 11:27 AM SPONGE PACKER): Off statin due to myalgias. Check lipids at [facility] in 1 month and consider starting alternative statin at low dose. Assessment & Plan (10/12/2021 11:09 AM CDT): LDL remains elevated. Start atorvastatin 20 mg daily. Hypertension, essential 04/13/2021 Assessment & Plan (10/12/2021 12:09 PM CDT): BP at goal based on home log without need for medication. Assessment & Plan (04/13/2021 1:19 PM SPONGE PACKER): BP elevated today. Check BP's at home using automated cuff and keep log. Send me log in 2 weeks. Goal < 130/80. Vitamin D deficiency 04/13/2021 Medicare annual wellness visit, subsequent 04/13 Assessment & Plan (06/20/2024 7:38 PM SPONGE PACKER): Exercise 30 minutes per day 5x weekly. Eat heart healthy (Mediterranean) diet of fruits, vegetables, and whole grains; avoid saturated fats and excess sweets. He declines vaccinations. No longer performing cancer screening due to age. Assessment & Plan (05/12/2023 1:01 PM SPONGE PACKER): Recovering very well after his accident. No longer performing cancer screening due to age. I recommended COVID, flu, and RSV vaccines. Assessment & Plan (04/13/2021 1:19 PM SPONGE PACKER): Continue healthy lifestyle. Strongly recommended COVID booster and flu shot. He will look into his records for the date of his last colonoscopy. Not doing PSA testing due to age. Primary osteoarthritis of right hip 11/06/2019 Overview (11/06/2019): Added automatically from request for surgery [id number] Impotence of organic origin 12/25/2014 Elevated prostate [...] Comments Blood Pressure 138/80 06/20/2024 1:19 PM SPONGE PACKER Pulse 82 06/20/2024 1:19 PM SPONGE PACKER Temperature 36.8 C (98.2 F) 02/07/2024 2:55 PM CDT Respiratory Rate 18 04/01/2022 8:10 AM SPONGE PACKER Oxygen Saturation 98% 02/07/2024 2:55 PM CDT Inhaled Oxygen Concentration - - Weight 82.9 kg (182 lb 12.8 oz) 07/05/2024 1:54 PM CDT Height 180.3 cm (5' 11 ) 06/20/2024 1:19 PM SPONGE PACKER Body Mass Index 25.5 06/20/2024 1:19 PM SPONGE PACKER Plan of Treatment Not on file Medical Devices Implanted Type Area Hand Presser Device Identifier Shelf Expiration Date Model / Serial / Lot [employer] [id number] 36mm Modular Hip +6mm Head Femoral Biolox Delta - S0 - [id number] Implanted:Qty: 1 on 11/23/2019 by Anton Orourke MD at [facility] Other - see comments Right: Hip [employer] [id number] 05/15/2028154450 / 0 / [id number] [employer] [id number] Taperloc Xr Series 150mm Press Fit Full Profile Hip 123d 15 Stem - S0 - [id number] Implanted:Qty: 1 on 11/23/2019 by Anton Orourke MD at [facility] Other - see comments Right: Hip [employer] 03/11/2026 [id number] / 0 / [id number] [employer] [id number] G7 58mm Limit 4 Hole Hip G Hemisphere Offset Shell Acetabular - [id number] Implanted:Qty: 1 on 11/23/2019 by Anton Orourke MD at [facility] Right: Hip [employer] [id number] 05/15/2029 [id number] / / [id number] [employer] [id number] G7 36mm Color Coded Hip +5mm G Neutral Liner Acetabular Arcomxl - [id number] Implanted:Qty: 1 on 11/23/2019 by Anton Orourke MD at [facility] Right: Hip [employer] [id number] 02/14/2023 [id number] / / [id number] [employer] Lula 58mm 12 Dome Screw Multihole Ii Hip Cup Acetabular Latex Free [id number] - [id number] Implanted:Qty: 1 on 03/31/2022 by Sebastián Bustamante MD at [facility] Left: Hip [employer] [id number] / / [employer] Lula 6.5mm 30mm Acetabular Cancellous Screw Bone Revision 121 - [id number] Implanted:Qty: 1 on 03/31/2022 by Sebastián Bustamante MD at [facility] Left: Hip [employer] [id number] / / [employer] Lula 6.5mm 25mm Acetabular Cancellous Screw Bone Sterile [id number] - [id number] Implanted:Qty: 1 on 03/31/2022 by Sebastián Bustamante MD at [facility] Left: Hip [employer] [id number] / / [employer] Lula 58mm 40mm Hip Neutral Liner Acetabular Altrx Sterile [id number] - [id number] Implanted:Qty: 1 on 03/31/2022 by Sebastián Bustamante MD at [facility] Left: Hip [employer] [id number] / / [employer] Actis L111 Mm Collar Hip 8 High Offset Stem Femoral [id number] - [id number] Implanted:Qty: 1 on 03/31/2022 by Sebastián Bustamante MD at [facility] Left: Hip [employer] [id number] / / [employer] Articul/Tito 40mm Sleeve Total Stabilize Hip +1.5mm 04/07 Taper [id number] - [id number] Implanted:Qty: 1 on 03/31/2022 by Sebastián Bustamante MD at [facility] Left: Hip [employer] [id number] / / Insurance [employer] MEDICARE PPO COMMERCIAL GENERIC [employer] MEDICARE PPO HUMANA CHOICE MEDICARE [facility]PO [facility] Advance Directives For more information, please contact: [phone] Documents on File Type Date Recorded Patient Track Laborer Expl anation ADVANCE DIRECTIVE 03/29/2022 2:44 PM POWER OF MAIL CARRIER-MEDICAL ADVANCE DIRECTIVE 11/23/2019 9:42 AM Power of Livestock Speculator-Medical * Full Code (Latest Code Status on File) Date Activated Date Inactivated Comments 03/31/2022 11:09 AM 04/01/2022 3:56 PM * Full Code Date Activated Date Inactivated Comments 11/23/2019 4:05 PM 11/24/2019 5:11 PM Care Teams Benzol Operator Relationship Specialty Start Date End Date Chaim Ojeda MD PCP - General Endocrinology Diabetes & Metabolism 11/18/20
--- OUTSIDE RECORDS SUMMARY | 2024-09-09 02:52 | XMS_ITS | Clinical Summary ---
Author Organization [facility] Address [address] [facility] [place] [address] Care Team Providers Care Emergency Department Rn Name Role Phone Chaim Ojeda MD Primary Care Provider [phone] Source Comments [facility] and Associated Physician Practices is amultiple site organization consisting of ambulatory clinics and hospital sitesin [place], [place], [place] and [place]. This disclosure is being madepursuant to the Care Everywhere program and may not contain all information available regarding this patient. Last updated 18.[facility] Allergies Active Allergy Reactions Criticality Noted Date [...] Recorded Patient Health Questionnaire-2 Score 0 03/22/2023 [facility] [place] [facility] - Occupational Stress [...] place to sleep or slept in a prison (including now)? No 11/01/2023 Sex and Gender Information Value Date Recorded Sex Assigned at Not on file Legal Sex Male 6:02 AM AIRPLANE INSPECTOR Gender Identity Not on file Sexual Orientation [...] Visit [facility] [address] [place] [address] [address] [place] [address] Olegario Phillips PA [address] [place] [address] Health Maintenance Due Date Last Done Comments [...] Katz Payer ID:[id number] (NAIC) Type:Medicare-Managed Care [address] [employer] MEDICARE ADV HMO & PPO Advance Directives Documents on File Type Date Recorded Patient Postmaster Expl anation Adv Directive/Living Will/POA 11/09/2023 6:43 PM * Full Code (Latest Code Status on File) Date Activated Date Inactivated Comments 11/01/2023 3:27 PM 11/08/2023 1:32 PM * Full Code Date Activated Date Inactivated Comments 07/27/2023 4:24 PM 07/28/2023 1:24 PM * Full Code Date Activated Date Inactivated Comments 02/16/2023 3:25 PM 03/01/2023 6:25 PM Care Teams Emergency Department Rn Relationship Specialty Start Date End Date Chaim Ojeda MD [address] [phone] PCP - General Internal Medicine 08/16/23
--- OUTSIDE RECORDS SUMMARY | 2024-09-09 02:52 | XMS_ITS | Encounter Summary ---
Author Organization [facility] Address [address] [place] [address] Care Team Providers Care Oil Refinery Process Technician Name Role Phone Gideon Barrera MD Primary Care Provider [phone] Chaim Ojeda MD Primary Care Provider Encounter Details Date Type Department Care Team (Late st Contact Info) Description 11/25/2017 Community Orders [facility] EpicCare Link Gideon aBrrera MD [address] [employer] [address] [phone] Inguinal hernia of right side with obstruction [...] Primary documented in this encounter Care Teams Oil Refinery Process Technician Relationship Specialty Start Date End Date Gideon Barrera MD [address] [employer] [address] [id number] PCP - General 11/24/17 11/17/20 Chaim Ojeda MD [address] [employer] [facility] [address], [place] [id number] PCP - General Endocrinology Diabetes & Metabolism 11/18/20 documented as of this encounter
--- OUTSIDE RECORDS SUMMARY | 2024-09-09 02:52 | XMS_ITS | Encounter Summary ---
Author Organization [facility] Healthcare Address [address] [place] [address] Care Team Providers Care Casting Plug Assembler Name Role Phone Gideon Barrera MD Primary Care Provider [phone] Chaim Ojeda MD Primary Care Provider Reason for Referral * Diagnostic Imaging (Routine) - Closed Specialty Diagnoses / Procedures Referred By Contac t Referred To Contact Radiology Diagnoses Periumbilical abdominal pain Pelvic pain in male Nausea and vomiting, intractability of vomiting not specified, unspecified vomiting type Loss of weight Temperature elevation Procedures CT Abdomen Pelvis W Contrast Gideon Barrera MD Phone: tel: fax: [address] [address] Referral ID Status Reason Start Date Expiration Date Visits Re quested Visits Authorized [id number] Closed 12/02/2017 06/13/2019 1 1 Encounter Details Date Type Department Care Team (Latest Contact Info) Description 12/02/2017 Community Orders [facility] EpicCare Link Gideon Barrera MD [facility] [address] [address] Periumbilical abdominal pain (Primary Dx); [...] unspecified documented in this encounter Care Teams Casting Plug Assembler Relationship Specialty Start Date End Date Gideon Barrera MD [address] [address] PCP - General 11/24/17 11/17/20 Chaim Ojeda MD [address] [address] PCP - General Endocrinology Diabetes & Metabolism 11/18/20 documented as of this encounter
--- OUTSIDE RECORDS SUMMARY | 2024-09-09 02:53 | XMS_ITS | Clinical Summary ---
Author Organization [address] Address [address] [place] [address] Care Team Providers Care Turbo Operator Name Role Phone Chaim Ojeda MD [...] 06/20/2024 Assessment & Plan (06/20/2024 7:37 PM HYDRATE THICKENER OPERATOR): Refer to PT. Alzheimer's disease with late onset 02/07/2024 Assessment & Plan (06/20/2024 7:37 PM HYDRATE THICKENER OPERATOR): Per neurology. Assessment & Plan (02/07/2024 3:58 [...] 05/12/2023 Assessment & Plan (05/12/2023 1:00 PM HYDRATE THICKENER OPERATOR): Sees urology. Continue finasteride and Flomax. 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 Has MRI planned at [facility]. He is hoping to be cleared to drive again. Primary osteoarthritis of left hip 03/31/2022 Left groin pain 03/09/2022 Assessment & Plan (03/09/2022 11:28 AM HYDRATE THICKENER OPERATOR): Likely L hip OA. X rays today. Referral to ortho pending results. Arthritis of left hip 03/09/2022 Chronic sinusitis 10/12/2021 Assessment & Plan (10/12/2021 11:10 AM CDT): Seeing ENT. Other hyperlipidemia 04/13/2021 Assessment & Plan (03/09/2022 11:27 AM HYDRATE THICKENER OPERATOR): Off statin due to myalgias. Check lipids at [facility] in 1 month and consider starting alternative statin at low dose. Assessment & Plan (10/12/2021 11:09 AM CDT): LDL remains elevated. Start atorvastatin 20 mg daily. Hypertension, essential 04/13/2021 Assessment & Plan (10/12/2021 12:09 PM CDT): BP at goal based on home log without need for medication. Assessment & Plan (04/13/2021 1:19 PM HYDRATE THICKENER OPERATOR): BP elevated today. Check BP's at home using automated cuff and keep log. Send me log in 2 weeks. Goal < 130/80. Vitamin D deficiency 04/13/2021 Medicare annual wellness visit, subsequent 04/13 Assessment & Plan (06/20/2024 7:38 PM HYDRATE THICKENER OPERATOR): Exercise 30 minutes per day 5x weekly. Eat heart healthy (Mediterranean) diet of fruits, vegetables, and whole grains; avoid saturated fats and excess sweets. He declines vaccinations. No longer performing cancer screening due to age. Assessment & Plan (05/12/2023 1:01 PM HYDRATE THICKENER OPERATOR): Recovering very well after his accident. No longer performing cancer screening due to age. I recommended COVID, flu, and RSV vaccines. Assessment & Plan (04/13/2021 1:19 PM HYDRATE THICKENER OPERATOR): Continue healthy lifestyle. Strongly recommended COVID booster and flu shot. He will look into his records for the date of his last colonoscopy. Not doing PSA testing due to age. 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 Elevated prostate specific antigen (PSA) 015 Encounters Date Type Department Care Team Description 08/28/2024 [facility] [address] [facility] [address] [place] [address] Chaim Ojeda MD dental procedure 08/20/2024 9:45 AM CDT Therapy [facility] [address] [place] [phone] Elisabeth Melendez DPJohan Chronic pain of left knee (Primary Dx) 08/02/2024 Plan of Care Documentation [facility] [address] [place] [phone] 07/26/2024 3:45 PM CDT Therapy [facility] [address] [place] [phone] Elisabeth Melendez DPT Chronic pain of left knee (Primary Dx) 07/05/2024 2:00 PM CDT Office Visit [facility] [address] [facility] 11[address] [place] [address] [place] [address] Pooja Soto PA Bilateral impacted cerumen 06/20/2024 1:30 PM HYDRATE THICKENER OPERATOR Office Visit [facility] [address] [facility] [address] [place] [address] Chaim Ojeda MD Medicare annual wellness visit, [...] Comments Blood Pressure 138/80 06/20/2024 1:19 PM HYDRATE THICKENER OPERATOR Pulse 82 06/20/2024 1:19 PM HYDRATE THICKENER OPERATOR Temperature 36.8 C (98.2 F) 02/07/2024 2:55 PM CDT Respiratory Rate 18 04/01/2022 8:10 AM HYDRATE THICKENER OPERATOR Oxygen Saturation 98% 02/07/2024 2:55 PM CDT Inhaled Oxygen Concentration - - Weight 82.9 kg (182 lb 12.8 oz) 07/05/2024 1:54 PM CDT Height 180.3 cm (5' 11 ) 06/20/2024 1:19 PM HYDRATE THICKENER OPERATOR Body Mass Index 25.5 06/20/2024 1:19 PM HYDRATE THICKENER OPERATOR Plan of Treatment Health Maintenance Due Date [...] 02/16/2023, 10/03/2002 Medical Devices Implanted Type Area Contemporary Or Modern Dancer Device Identifier Shelf Expiration Date Model / Serial / Lot [employer] [id number] 36mm Modular Hip +6mm Head Femoral Biolox Delta - S0 - [id number] Implanted:Qty: 1 on 11/23/2019 by Anton Orourke MD at [facility] Other - see comments Right: Hip [employer] [id number] 05/15/2028 [id number] / 0 / [id number] [employer] [id number] Taperloc Xr Series 150mm Press Fit Full Profile Hip 123d 15 Stem - S0 - [id number] Implanted:Qty: 1 on 11/23/2019 by nAton Orourke MD at [facility] Other - see comments Right: Hip [employer] 03/11/2026 [id number] / 0 / [id number] [employer] [id number] G7 58mm Limit 4 Hole Hip G Hemisphere Offset Shell Acetabular - [id number] Implanted:Qty: 1 on 11/23/2019 by Anton Orourke MD at [facility] Right: Hip [employer] [id number] 05/15/2029 [id number] / / [id number] [employer] [id number] G7 36mm Color Coded Hip +5mm G Neutral Liner Acetabular Arcomxl - [id number] Implanted:Qty: 1 on 11/23/2019 by Anton Orourke MD at [facility] Right: Hip [employer] [id number] 02/14/2023 [id number] / / [id number] [employer] [place] 58mm 12 Dome Screw Multihole Ii Hip Cup Acetabular Latex Free [id number] - [id number] Implanted:Qty: 1 on 03/31/2022 by Sebastián Bustamante MD at [facility] Left: Hip [employer] [id number] / / [employer] [place] 6.5mm 30mm Acetabular Cancellous Screw Bone Revision - [id number] Implanted:Qty: 1 on 03/31/2022 by Sebastián Bustamante MD at [facility] Left: Hip [employer] [id number] / / [employer] [place] 6.5mm 25mm Acetabular Cancellous Screw Bone Sterile - [id number] Implanted:Qty: 1 on 03/31/2022 by Sebastián Bustamante MD at [facility] Left: Hip [employer] [id number] / / [employer] [place] 58mm 40mm Hip Neutral Liner Acetabular Altrx Sterile [id number] - [id number] Implanted:Qty: 1 on 03/31/2022 by Sebastián Bustamante MD at [facility] Left: Hip [employer] [id number] / / [employer] Actis L111 Mm Collar Hip 8 High Offset Stem Femoral [id number] - [id number] Implanted:Qty: 1 on 03/31/2022 by Sebastián Bustamante MD at [facility] Left: Hip [employer] [id number] / / [employer] Articul/Tito 40mm Sleeve Total Stabilize Hip +1.5mm 04/07 Taper [id number] - [id number] Implanted:Qty: 1 on 03/31/2022 by Sebastián Bustamante MD at [facility] Left: Hip [employer] [id number] / / Insurance HUMANA CHOICE MEDICARE PPO COMMERCIAL GENERIC HUMANA CHOICE MEDICARE PPO HUMANA CHOICE MEDICARE PPO HUMANA CHOICE MEDICARE PPO Advance Directives For more information, please contact: [phone] Documents on File Type Date Recorded Patient Rn Radiology Expl anation ADVANCE DIRECTIVE 03/29/2022 2:44 PM POWER OF FLOOR ATTENDANT-MEDICAL ADVANCE DIRECTIVE 11/23/2019 9:42 AM Power of Fisheries Biologist-Medical * Full Code (Latest Code Status on File) Date Activated Date Inactivated Comments 03/31/2022 11:09 AM 04/01/2022 3:56 PM * Full Code Date Activated Date Inactivated Comments 11/23/2019 4:05 PM 11/24/2019 5:11 PM Care Teams Turbo Operator Relationship Specialty Start Date End Date Chaim Ojeda MD PCP - General Endocrinology Diabetes & Metabolism 11/18/20
--- OUTSIDE RECORDS SUMMARY | 2024-09-09 02:53 | XMS_ITS | Continuity of Care Document ---
Author Organization [facility] Address [address] [place] [address] Phone Care Team Providers Care Corporate Accountant Name Role Phone Ike Fiore MD Unavailable [...] Diagnoses Date Provider Providers Copied on Encounter [facility], [address], [place], [place], [id number], tel:[phone] [facility] No Information 1 Adebayo Ike. [address] [place] [address], [id number] , . tel: [phone] [facility], [address], [place], [id number], tel:[phone] [facility] CHRONIC RHINITISALLERGIC RHINITIS NEC 4 Adebayo Ike. [address] [place] [address], [id number] , . tel: [phone] Family History Family Member Type Diagnosis Age At Onset No Information Payers Payer name Insurance type Covered democrat ID Authoriza tion(s) No Information Social History [...]
[2024-09-09 04:41] LABS: Add Urine Microscopic? NO; Appearance Urine Clear (Clear); Bilirubin Urine Negative (Negative); Blood Urine Negative (Negative); Color Urine Yellow (Yellow); Glucose Urine UA Negative (Negative); Ketones Urine Negative (Negative); Leukocyte Esterase Ur Negative LEU/UL (Negative); Nitrate Urine Negative (Negative); Protein Urine Negative (Negative); Specific Grav Ur 1.011 (1.001-1.035); Urobilinogen Urine 0.2 mg/dL (<2.0); pH Urine 7.5 (5.0-9.0)
--- NOTE | 2024-09-09 05:01 | ED.NAVMDI ---
HPI - Nausea/Vomiting/Diarrhea General Chief complaint: Nausea/Vomiting/Diarrhea Stated complaint: vomiting Time Seen by Provider: 09/09/24 01:17 History of Present Illness HPI Narrative: Patient sent here from assisted living because he started throwing up. He also reports feeling to see with a slight headache. No recent head injury. Related Data Home Medications Medication Instructions Recorded Confirmed Last Taken Type citalopram 10 mg tablet mg 04/05/24 Unknown History clonidine HCl 0.1 mg tablet mg 04/05/24 Unknown History finasteride 5 mg tablet mg 04/05/24 Unknown History gabapentin 100 mg capsule mg 04/05/24 Unknown History quetiapine 50 mg tablet mg 04/05/24 Unknown History Allergies Allergy/AdvReac Type Severity Reaction Status Date / Time No Known Allergies Allergy Mild Verified 04/05/24 18:03 Review of Systems Review of Systems: All systems reviewed & are unremarkable except as noted in HPI and below PMFSH Past Medical History Medical History Urinary retention Surgical History Surgical History History of suprapubic catheter 07/28/2023 Social History Social History Smoking status: Never smoker Alcohol intake: current Substance use: never Exam Narrative: EXAMINATION OF ORGAN SYSTEMS/BODY AREAS: Constitutional: Vital signs per nursing GENERAL:[No acute distress, non-toxic appearing.] HEAD: Normal with no signs of head trauma. EYES: EOMI, conjunctiva normal ENT: Hearing grossly intact LUNGS: Nonlabored breathing. HEART: [Regular rate and rhythm] ABD: [Soft], [nontender to palpation] EXT: Normal range of motion SKIN: [No rashes or lesions.] NEURO: [Alert. No gross focal sensory or strength deficits.] Able to stand and ambulate. PSYCH: Normal affect Course Vital Signs Vital signs: Vital Signs Temperature 97.7 F 09/09/24 01:21 Pulse Rate 65 09/09/24 01:21 Respiratory Rate 13 09/09/24 01:21 Pulse Oximetry 98 09/09/24 01:21 Oxygen Delivery Room Air 09/09/24 01:21 Temperature 97.7 F 09/09/24 01:21 Pulse Rate 60 09/09/24 05:22 Respiratory Rate 16 09/09/24 05:22 Blood Pressure 147/84 H 09/09/24 05:22 Pulse Oximetry 99 09/09/24 05:22 Oxygen Delivery Room Air 09/09/24 01:21 MDM - Nausea/Vomiting/Diarrhea MDM Narrative Medical decision making narrative: Patient sent here from assisted living because he started throwing up. He also reports feeling dizzy with a slight headache. No recent head injury. snf concerned about possible hernia. On my exam, his abdomen is soft and nontender; labs within acceptable limits. He denies any abdominal pain. I did not note any obvious hernia. Urinalysis normal. After raimundo Tyson is seen, patient states he feels better. He has not had any further episodes of emesis here. Repeat abdomen exam benign. He is able to stand up and walk. At this point I do feel he is stable for discharge with return precautions follow-up to primary care doctor. He does have an appointment in a few days. Patient and daughter at bedside agreeable to this plan. Lab Data 09/09/24 01:27 09/09/24 01:27 Labs: Lab Results 09/09/24 09/09/24 Range/Units 01:27 03:57 WBC 10.3 H (4.5-10.0) K/mm3 RBC 4.92 (4.6-6.20) M/mm3 Hgb 15.7 (14.0-18.0) g/dL Hct 47.0 (42.0-52.0) % MCV 95.5 (80-100) fl MCH 31.9 (26-34) pg MCHC 33.4 (32-36) g/dl RDW 12.7 (11.5-14.5) % Plt Count 206 (150-375) k/mm3 MPV 9.9 (7.4-10.4) fl Immature Gran % (Auto) 0.4 (0-0.5) % Neut % (Auto) 81.9 H (45.5-73.1) % Lymph % (Auto) 10.9 L (18.3-44.2) % [place] % (Auto) 4.4 (2.6-8.5) % Eos % (Auto) 1.9 (0-4.4) % Baso % (Auto) 0.5 (0.2-1.2) % Lymph # (Auto) 1.12 (0.9-3.2) K/mm3 [place] # (Auto) 0.5 (0.1-0.6) K/mm3 Eos # (Auto) 0.2 (0-0.3) K/mm3 Baso # (Auto) 0.1 (0.0-0.1) K/mm3 Abs Immat Gran (auto) 0.04 H (0.00-0.031) K/mm3 Absolute Neuts (auto) 8.4 H (1.3-6.7) K/mm3 Absolute Nucleated RBC 0.000 (0.0-0.012) K/mm3 Nucleated RBC % 0.0 (0.0-0.2) % Sodium 139 (137-145) mmol/L Potassium 4.0 (3.4-5.0) mmol/L Chloride 105 (98-107) mmol/L Carbon Dioxide 26 (22-30) mmol/L Anion Gap 8 (4-12) mmol/L BUN 21 H (9-20) mg/dL Creatinine 1.06 (0.7-1.3) mg/dL Estim Creat Clear Calc 50 ml/min Estimated GFR > 60 (59 - ) Glucose 135 H (65-110) mg/dL Calcium 9.0 (8.4-10.2) mg/dL Total Bilirubin 0.4 (0.2-1.3) mg/dL AST 38 (17-59) U/L ALT 29 (6-50) U/L Alkaline Phosphatase 78 (38-126) U/L Total Protein 8.0 (6.3-8.2) g/dL Albumin 4.1 (3.5-5.1) g/dL Lipase 55 (23-300) U/L Urine Color Yellow (Yellow) Urine Appearance Clear (Clear) Urine pH 7.5 (5.0-9.0) Ur Specific [place] 1.011 (1.001-1.035) Urine Protein Negative (Negative) mg/dL Urine Glucose (UA) Negative (Negative) mg/dL Urine Ketones Negative (Negative) mg/dL Ur Blood (Man) Negative (Negative) Urine Nitrate Negative (Negative) Urine Bilirubin Negative (Negative) Urine Urobilinogen 0.2 (<2.0) mg/dL Leukocyte Esterase Rfl Negative (Negative) JACK/UL Discharge Plan Discharge Clinical Impression: Nausea, Dizziness Patient Disposition: NH Fpc/Asst Living Condition: Stable Instructions: Acute Nausea and Vomiting (ED), Dizziness (ED) Additional Instructions: Please follow up with your doctor; you can always return for any further issues. Patient Language: Brazilian Prescriptions: New ondansetron 4 mg tablet,disintegrating 4 mg PO Q8H PRN (Reason: nausea and vomiting) Qty: 10 0RF famotidine 20 mg tablet 20 mg PO DAILY Qty: 30 0RF No Action clonidine HCl 0.1 mg tablet citalopram 10 mg tablet gabapentin 100 mg capsule finasteride 5 mg tablet quetiapine 50 mg tablet Follow-up/Referrals: PHYSICIAN,ROPE COILING MACHINE OPERATOR [Primary Care Provider] -
[2024-09-09 05:22] VITALS: BP 147/84; PULSE 60; RESP 16; O2SAT 99
== END 2024-09-09 05:34 ==
PROVIDERS: Emergency Provider Emergency Medicine
DX: R11.0 Nausea (principal); R42 Dizziness and giddiness
CPT/HCPCS: 36415; 80053; 81003; 83690; 85025; 93005; 96361; 96374; 96375; 99284; A9270; J2405; J7120

== ENCOUNTER 2024-10-10 17:41 | Emergency (ER) | payer MEDICARE, SELFPAY ==
--- NOTE | ~2024-10-10 | XR_ITS ---
CHEST RADIOGRAPH, PA AND LATERAL CLINICAL HISTORY: cough, RLL-crackles, RML-rhonci . COMPARISON: 07/31/2017 TECHNIQUE: PA and lateral views of the chest. FINDINGS The cardiomediastinal silhouette is unremarkable. Air bronchograms within the superior segment of the right lower lobe, corresponding to patient's hist ory. The remainder of the lungs are clear. IMPRESSION: Early infiltrate within the superior segment of the right lower lobe, as detailed above. Reviewed, dictated and finalized at location A. IMPRESSION: Early infiltrate within the superior segment of the right lower lobe, as detail ed above.
--- NOTE | 2024-10-10 17:43 | ED_ITS ---
HPI - URI/Sore Throat General Chief Complaint: Upper Respiratory Infection Stated Complaint: Cough / Congestion Time Seen by Provider: 10/10/24 17:42 Source: patient Mode of arrival: ambulatory Limitations: no limitations History of Present Illness HPI Narrative: Mr. Katz is a an 84-year-old male patient presenting to the clinic today with complaints of cough, sinus headache, sinus congestion, and chest congestion times 10 days. He is coughing up some yellow phlegm. Denies any known fevers, chills, body aches. Denies any chest pain or shortness of breath. [facility] and they sent in prescriptions for azithromycin, Mucinex, Claritin, and Medrol Dosepak to treat for bronchitis. He is not yet started the Medrol Dosepak or the azithromycin but has been taking Mucinex and Claritin. Related Data Home Medications ?Medication ?Instructions ?Recorded ?Confirmed ?Last Taken ?Type citalopram 10 mg tablet mg 04/05/24 Unknown History clonidine HCl 0.1 mg tablet mg 04/05/24 Unknown History finasteride 5 mg tablet mg 04/05/24 Unknown History gabapentin 100 mg capsule mg 04/05/24 Unknown History quetiapine 50 mg tablet mg 04/05/24 Unknown History azithromycin 250 mg tablet mg 10/10/24 Unknown History guaifenesin 600 mg tablet, mg PO 10/10/24 Unknown History extended release 12 hr loratadine 10 mg tablet mg 10/10/24 Unknown History methylprednisolone 4 mg tablets in mg 10/10/24 Unknown History a dose pack Allergies Allergy/AdvReac Type Severity Reaction Status Date / Time No Known Allergies Allergy Mild Verified 10/10/24 17:48 Review of Systems Review of Systems: Pertinent positives per HPI. Patient denies any fever, chills, rash, headache, visual changes, dizziness, shortness of breath, chest pain, palpitations, nausea, vomiting, diarrhea, constipation, abdominal pain, or any urinary issues. [facility] Past Medical History Medical History Urinary retention Surgical History Surgical History History of suprapubic catheter 07/28/2023 Social History Social History (Reviewed 10/10/24 @ 17:43 by LASHONDA Billy Smoking status: Never smoker Alcohol intake: current Substance use: never Comments At the time of my signature, I reviewed and agree with the nursing past medical, surgical, social, and family history. There is no relevant family history pertinent to the patient complaint. Exam Narrative: General: Well-developed, well nourished, in no apparent distress Head: Normocephalic, atraumatic Eyes: Pupils equally round and reactive to light bilaterally, EOM intact, sclera and conjunctive clear, no discharge, lids normal Ears: TMs intact and clear, ear canals clear, no drainage, grossly hearing normal. Nose: Nares patent, yellow nasal discharge, moderate inflammation, maxillary sinus tenderness. Mouth: Oral pharynx red without lesions or masses, good dentition, MMM. PND Neck: Supple, trachea midline, no enlargement of anterior or posterior cervical nodes, no thyroid masses or goiter palpable. Cardio: Regular rate and rhythm, s1 and s2 normal, no murmur appreciated. Resp: Expiratory rhonchi over the right upper and middle lobe, inspiratory crackles in the right lower lobe, no wheezing or rubs Course Course Emergency Course: Portions of this record may have been created with voice recognition software. Level of Care: Express Care Visit Vital Signs Vital signs: Vital Signs Temperature 36.6 C 10/10/24 17:49 Pulse Rate 73 10/10/24 17:49 Respiratory Rate 16 10/10/24 17:49 Blood Pressure 149/78 H 10/10/24 17:49 Pulse Oximetry 95 10/10/24 17:49 Oxygen Delivery Room Air 10/10/24 17:49 Temperature 36.6 C 10/10/24 17:49 Pulse Rate 73 10/10/24 17:49 Respiratory Rate 16 10/10/24 17:49 Blood Pressure 149/78 H 10/10/24 17:49 Pulse Oximetry 95 10/10/24 17:49 Oxygen Delivery Room Air 10/10/24 17:49 Vital signs reviewed MDM - URI/Sore Throat MDM Narrative Medical decision making narrative: At the time of visit patient is resting comfortably on the exam table. Patient appears to be nontoxic. Diagnostics: Chest x-ray was performed and shows an early infiltrate in the superior segment of the right lower lobe. Plan: I suspect patient has right lower lobe pneumonia with acute bacterial rhinosinusitis. Prescription for Augmentin and albuterol inhaler was sent to the pharmacy. Patient has picked up the azithromycin as it was previously ordered. Will have him hold taking the Medrol Dosepak. He should follow up with his primary care doctor next week. Supportive measures were discussed with the patient and they voiced understanding discharge instructions and agrees to treatment plan. Return precautions reviewed Differential Diagnosis Differential diagnosis: Likely upper respiratory infection, otitis media, sinusitis, viral infection, bronchitis, influenza, pharyngitis and other (COVID) Discharge Plan Discharge Clinical Impression: Acute bacterial rhinosinusitis Right lower lobe pneumonia Qualifiers: Pneumonia type: due to unspecified organism Qualified Code(s): J18.9 - Pneumonia, unspecified organism Patient Disposition: Home Condition: Stable Instructions: Antibiotic Form, Rhinosinusitis (ED), Community Acquired Pneumonia (ED) Additional Instructions: X-ray shows early infiltrate within the superior segment of the right lower lobe Take prescription medications only as prescribed-albuterol inhaler and Augmentin Start azithromycin as prescribed and hold taking the Medrol Dosepak Increase fluids and stay well hydrated Tylenol/motrin for pain/fever Flonase and OTC antihistamines as directed Vicks vapor rub to open sinuses Sinus rinses for congestion Cepacol spray, cough drops, throat lozenges, warm tea with honey/lemon, gargle salt water to soothe throat BRAT diet for diarrhea Clear liquids x 24 hours then advance as tolerated for nausea/vomiting Go to the ED if you develop a worsening in your condition- high fever not controlled by Tylenol or Motrin, dehydration, weakness, lethargy, shortness of breath, or chest pain. Follow up with your PCP in 3-5 days if symptoms persist. Patient Language: Cook Islander Prescriptions: New albuterol sulfate 90 mcg/actuation HFA aerosol inhaler 2 puff inhalation Q4-6H PRN (Reason: shortness of breath or wheezing) 30 Days Qty: 8.5 0RF amoxicillin-pot clavulanate 875-125 mg tablet 1 tablet PO Q12H 7 Days Qty: 14 0RF No Action clonidine HCl 0.1 mg tablet citalopram 10 mg tablet gabapentin 100 mg capsule finasteride 5 mg tablet quetiapine 50 mg tablet azithromycin 250 mg tablet methylprednisolone 4 mg tablets,dose pack loratadine 10 mg tablet guaifenesin 600 mg tablet extended release 12hr PO famotidine 20 mg tablet 20 mg PO DAILY Qty: 30 0RF Follow-up/Referrals: UNKNOWN,DOCTOR [Non-Staff] - Time of Disposition: 18:15 Quality NIHSS Nursing Documentation ED NIHSS nursing documentation: reviewed/agree
[2024-10-10 17:49] VITALS: BP 149/78; PULSE 73; RESP 16; TEMP 36.6; O2SAT 95
--- OUTSIDE RECORDS SUMMARY | 2024-10-10 17:52 | XMS_ITS | Encounter Summary ---
Author Organization [facility] Healthcare Address [address] [place] [address] Care Team Providers Care Press Operator Instant Print Shop Name Role Phone Gideon Barrera MD Primary Care Provider [phone] Chaim Ojeda MD Primary Care Provider Reason for Referral * Diagnostic Imaging (Routine) - Closed Specialty Diagnoses / Procedures Referred By Contac t Referred To Contact Radiology Diagnoses Periumbilical abdominal pain Pelvic pain in male Nausea and vomiting, intractability of vomiting not specified, unspecified vomiting type Loss of weight Temperature elevation Procedures CT Abdomen Pelvis W Contrast Gideon Barrera MD Phone: tel: fax: [address] [address] Referral ID Status Reason Start Date Expiration Date Visits Re quested Visits Authorized [id number] Closed 12/02/2017 06/13/2019 1 1 Encounter Details Date Type Department Care Team (Latest Contact Info) Description 12/02/2017 Community Orders [facility] EpicCare Link Gideon Barrera MD Counts include 234 beds at the [facility] [address] [address] Periumbilical abdominal pain (Primary Dx); [...] as of this encounter Plan of Treatment Upcoming Encounters Date Type Department Care Team (Late st Contact Info) Description 11/26/2024 Hospital Encounter [facility] [address] [place] [address] Jayleen Ordoñez MD [address] [place] [address] Scheduled Procedures Name Priority Associated Diagnoses Date/Ti mt REPAIR INGUINAL HERNIA Non-recurrent unilateral inguinal hernia without obstruction or gangrene documented as of this encounter Results * [...] limits. Electronically signed by: Souleymane Hermosillo M.D. Narrative 12/16/2017 12:11 PM CDT EXAMINATION: CT of [...] mild age-indeterminate wedging of T12. Procedure Note Bay, Souleymane F., MD PhD - 12/16/2017 EXAMINATION: CT of [...] unspecified documented in this encounter Care Teams Press Operator Instant Print Shop Relationship Specialty Start Date End Date Gideon Barrera MD [address] [address] PCP - General 11/24/17 11/17/20 Chaim Ojeda MD [address] [facility] [address] [place] [address] PCP - General Endocrinology Diabetes & Metabolism 11/18/20 documented as of this encounter
--- OUTSIDE RECORDS SUMMARY | 2024-10-10 17:52 | XMS_ITS | Continuity of Care Document ---
Author Organization [facility] Address [address] [place] [address] Phone Care Team Providers Care Shovel Log Loader Operator Name Role Phone Ike Fiore MD Unavailable [...] Diagnoses Date Provider Providers Copied on Encounter [facility], [address], [place], [place], [id number], tel:[phone] [facility] No Information 1 Adebayo Ike. [address] [place] [address], [id number] , . tel: [phone] [facility], [address], [place], [id number], tel:[phone] [facility] CHRONIC RHINITISALLERGIC RHINITIS NEC 4 Adebayo Ike. [address] [place] [address], [id number] , . tel: [phone] Family History Family Member Type Diagnosis Age [...]
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
--- OUTSIDE RECORDS SUMMARY | 2024-10-10 17:52 | XMS_ITS | Encounter Summary ---
Author Organization [facility] Address [address] [place] [address] Care Team Providers Care Mounter Automatic Name Role Phone Gideon Barrera MD Primary Care Provider [phone] Chaim Ojeda MD Primary Care Provider Encounter Details Date Type Department Care Team (Late st Contact Info) Description 11/25/2017 Community Orders [facility] EpicCare Link Gideon Barrera MD [address] [facility] [address] [place], [place] [id number] Inguinal hernia of right side with obstruction [...] st Contact Info) Description 11/26/2024 Hospital Encounter [facility]) [address] [place], [place] [address] Jayleen Ordoñez MD [address] [facility] [address] [place] [address] Scheduled Procedures Name Priority Associated Diagnoses Date/Ti me REPAIR INGUINAL HERNIA Non-recurrent unilateral inguinal hernia without obstruction or gangrene documented as of this encounter Visit Diagnoses Diagnosis Inguinal hernia of right side with obstruction- Primary documented in this encounter Care Teams Mounter Automatic Relationship Specialty Start Date End Date Gideon Barrera MD [address] [address] PCP - General 11/24/17 11/17/20 Chaim Ojeda MD [address] [address] PCP - General Endocrinology Diabetes & Metabolism 11/18/20 documented as of this encounter
--- OUTSIDE RECORDS SUMMARY | 2024-10-10 17:52 | XMS_ITS | Clinical Summary ---
Author Organization [facility] Address [address] [place] [address] Care Team Providers Care Installation Tech Name Role Phone Chaim Ojeda MD Primary Care Provider [phone] Source Comments [facility] Affiliates and Associated Physician Practices is amultiple site organization consisting of ambulatory clinics and hospital sitesin [place], [place], [place] and [place]. This disclosure is being madepursuant to the Care Everywhere program and may not contain all information available regarding this patient. Last updated 18.[facility] Allergies Active Allergy Reactions Criticality Noted Date [...] Recorded Patient Health Questionnaire-2 Score 0 03/22/2023 [facility] [place] [facility] Occupat ional [facility] - Occupational Stress [...] place to sleep or slept in a alf (including now)? No 11/01/2023 Sex and Gender Information Value Date Recorded Sex Assigned at Not on file Legal Sex Male [address] LIGHT SERVICER Gender Identity Not on file Sexual Orientation [...] 11:09 AM CDT Height 180.3 cm (5' 11) 02/16/2024 11:09 AM CDT Body Mass Index 25.27 02/16/2024 11:09 AM CDT Plan of Treatment Upcoming Encounters Date Type Department Care Team (Late st Contact Info) Description 11/15/2024 9:00 AM CDT Office Visit [facility] - Urology [address] [place] [address] [address] [place] [address] Olegario Phillips PA [address] [place] [id number] Health Maintenance Due Date Last Done Comments [...] Katz Payer ID:[id number] (NAIC) Type:Medicare-Managed Care [address] [employer] MEDICARE ADV HMO & PPO Advance Directives Documents on File Type Date Recorded Patient Technical Training Specialist Expl anation Adv Directive/Living Will/POA 11/09/2023 6:43 PM * Full Code (Latest Code Status on File) Date Activated Date Inactivated Comments 11/01/2023 3:27 PM 11/08/2023 1:32 PM * Full Code Date Activated Date Inactivated Comments 07/27/2023 4:24 PM 07/28/2023 1:24 PM * Full Code Date Activated Date Inactivated Comments 02/16/2023 3:25 PM 03/01/2023 6:25 PM Care Teams Installation Tech Relationship Specialty Start Date End Date Chaim Ojeda MD [id number] [id number] PCP - General Internal Medicine 08/16/23
--- OUTSIDE RECORDS SUMMARY | 2024-10-10 17:52 | XMS_ITS | Continuity of Care Document ---
Author Organization [facility] Address [address] [place] [address] Phone Care Team Providers Care Director Hris Name Role Phone Ike Fiore MD Unavailable [...] Diagnoses Date Provider Providers Copied on Encounter [facility], [address], [place], [place], [id number], tel:[phone] [facility] No Information 1 Adebayo Ike. [address] [place] [address], [id number] , . tel: [phone] [employer]*, [address], [place], [id number], tel:[phone] [facility] CHRONIC RHINITISALLERGIC RHINITIS NEC 4 Adebayo Ike. [address] [place] [address], [id number] , . tel: [phone] Family History Family Member Type Diagnosis Age At Onset No Information Payers Payer name Insurance type Covered alliance party ID Authoriza tion(s) No Information Social [...]
== END 2024-10-10 18:17 | disposition home or self-care (01) ==
PROVIDERS: Emergency Provider Nurse Practitioner Family
DX: J01.90 Acute sinusitis, unspecified (principal); J18.1 Lobar pneumonia, unspecified organism
CPT/HCPCS: 71046; 99213; G0463